=== PATIENT | female | born 1975 ===

== ENCOUNTER 2023-10-12 14:35 | Emergency (ER) | payer BC ==
[2023-10-12 14:43] VITALS: BP 151/97; PULSE 107; RESP 20; TEMP 97.6; BMI 27.9
[2023-10-12 16:15] LABS: BASO % 0.4 % (0-2.0); EOS % 1.1 % (0-4.5); HEMATOCRIT 39.6 % (32.4-45.2); HEMOGLOBIN 13.3 GM/dL (10.7-15.3); MCHC 33.7 g/dl (32.0-36.0); MEAN PLT VOLUME 8.7 fl (7.5-11.1); MONO % 6.8 % (3.8-10.2); NEUT % 72.7 % (42.8-82.8); PLATELET COUNT 245 10^3/uL (134-434); RBC 4.77 M/mm3 (3.60-5.2); RDW 14.1 % (11.6-15.6); WHITE BLOOD COUNT 4.6 K/mm3 (4.0-10.0)
[2023-10-12 16:29] LABS: POTASSIUM 3.9 mmol/L (3.5-5.1)
[2023-10-12 16:31] LABS: CALCIUM 9.4 mg/dL (8.5-10.1)
[2023-10-12 16:32] LABS: ALBUMIN 3.9 g/dl (3.4-5.0); BLOOD UREA NITROGEN 10.3 mg/dL (7-18)
[2023-10-12 16:35] LABS: CREATININE 0.8 mg/dL (0.55-1.3)
[2023-10-12 16:36] LABS: BILIRUBIN,TOTAL 0.6 mg/dL (0.2-1)
[2023-10-12 16:37] LABS: TOT PROT 7.2 g/dl (6.4-8.2)
[2023-10-12] MEDS ORDERED: ACETAMINOPHEN INJECTION 100 ML IVPB ONE (17:18)
[2023-10-12] MEDS ORDERED: ACETAMINOPHEN 325 MG TABLET (FP) ONE (17:22)
[2023-10-12 17:25] LABS: HIV INTERPRETATION NEGATIVE (NEGATIVE)
[2023-10-12] MEDS: ACETAMINOPHEN 1000 MG/100 ML BAG IVPB ONE (17:41)
[2023-10-12] MEDS: SODIUM CHLORIDE 1,000 ML IV STA (17:41)
[2023-10-12] MEDS: ACETAMINOPHEN 500 MG TABLET (FP) PO ONE (17:42)
[2023-10-12 18:22] LABS: URINE APPEARANCE CLEAR; URINE BILIRUBIN NEGATIVE (NEGATIVE); URINE COLOR YELLOW; URINE GLUCOSE (UA) NEGATIVE (NEGATIVE); URINE KETONE TRACE (NEGATIVE); URINE LEUK ESTERASE NEGATIVE (NEGATIVE); URINE NITRITE NEGATIVE (NEGATIVE); URINE PROTEIN NEGATIVE (NEGATIVE); URINE UROBILINOGEN 0.2 mg/dL (0.2-1.0)
[2023-10-12 18:28] LABS: HCG,QUALITATIVE URINE Negative
== END 2023-10-12 19:06 | disposition home or self-care (01) ==
LOC: JER 14:35
DX: R07.89 Other chest pain (principal); R06.02 Shortness of breath; R00.2 Palpitations
CPT/HCPCS: 36415; 71046-TC-FY; 80053; 81003; 84484; 84703; 85025; 85379; 86803; 87077; 87086; 87389; 93005; 93010; 99285-25